=== PATIENT | female | born 1955 | race Two or more races ===

== ENCOUNTER 2018-10-16 16:27 | Inpatient (IN) | payer OTHER ==
[~2018-10-16] VITALS: Ht 172.7 cm; Wt 58.8 kg
[~2018-10-16 16:27] MED LIST: CARV3.1260 PO; FURO40TA4 PO; LISI-313 PO
[2018-10-16] MEDS ORDERED: BISACODYL (EC) 5 MG TAB PO PRN (20:00)
[2018-10-16] MEDS ORDERED: ONDANSETRON 4 MG INJ IV PRN (20:00)
[2018-10-16] MEDS ORDERED: hydrALAzine 20 MG INJ IV PRN (20:00)
[2018-10-16] MEDS ORDERED: DOCUSATE SODIUM 100 MG CAP PO PRN (20:00)
[2018-10-16] MEDS ORDERED: morphine 2 MG INJ IV PRN (20:00)
[2018-10-16] MEDS ORDERED: ACETAMINOPHEN 325 MG TAB PO PRN (20:00)
[2018-10-16] MEDS ORDERED: NACL 0.9% 3 ML SYG IV SCH (20:00)
[2018-10-16 20:34] VITALS: BP 146/90; PULSE 102; RESP 18
--- NOTE | 2018-10-16 22:11 | HP ---
Date/Time of Note Date/Time of Note DATE: 10/16/18 TIME: 22:11 Assessment/Plan VTE Prophylaxis Pharmacological prophylaxis: heparin Assessment/Plan Hospital Course this is a 63 of female being admitted to the telemetry floor for: #1 suspect new onset CHF: Patient did present with bilateral lower extremity and symptoms of orthopnea and shortness of breath. I suspect a cardiac etiology at the current time though renal etiology is also on consideration as well as hepa tic. Will obtain an echocardiogram. We will put the patient on IV Lasix for diuresis of 20 mg IV twice daily. Will monitor urine output. Fluid restriction and low-salt diet. Will check a BNP level. Consult cardiology 2. Bilateral lower extremity swelling: Again likely secondary to suspicion for new onset CHF. Nonetheless we will also check a bilateral lower extremity ultrasound Dopplers to rule out DVT. 3 urinary tract infection: Patient did receive ceftriaxone at the transferring facility. Will await urine culture/urinalysis results from the transfer facility. Initiate Cipro 250 p.o. twice daily x3 days 4 Thrombocytopenia: Etiology unknown, will check a liver ultrasound, 5 Mild hyperbilirubinemia: We will check a right upper quadrant ultrasound, 6 DVT GI prophylaxis: Heparin, no GI prophylaxis indicated Further treatment strategy will be implemented as per the clinical course Result Diagram: 10/16/18201110/16/182011 Results 24hrs Laboratory Tests Test 10/16/18 20:12 White Blood Count 6.6 Red Blood Count 4.35 Hemoglobin 13.9 Hematocrit 41.4 Mean Corpuscular Volume 95.2 Mean Corpuscular Hemoglobin 32.0 Mean Corpuscular Hemoglobin Concent 33.6 Red Cell Distribution Width 14.1 Platelet Count 130 L Mean Platelet Volume 11.1 H Immature Granulocytes % 0.300 Neutrophils % 65.0 Lymphocytes % 20.5 Monocytes % 11.3 H Eosinophils % 2.1 Basophils % 0.8 Nucleated Red Blood Cells % 0.3 H Immature Granulocytes # 0.020 Neutrophils # 4.3 Lymphocytes # 1.4 Monocytes # 0.7 Eosinophils # 0.1 Basophils # 0.1 Nucleated Red Blood Cells # 0.0 Sodium Level 140 Potassium Level 4.0 Chloride Level 106 Carbon Dioxide Level 22 Anion Gap 12 Blood Urea Nitrogen 16 Creatinine 0.79 Est Glomerular Filtrat Rate mL/min > 60 Glucose Level 140 Calcium Level 9.7 Magnesium Level 2.0 Total Bilirubin 1.2 Direct Bilirubin 0.00 Indirect Bilirubin 1.2 H Aspartate Amino Transf (AST/SGOT) 41 Alanine Aminotransferase (ALT/SGPT) 33 Alkaline Phosphatase 78 Creatine Kinase 66 Creatine Kinase Index 1.9 Creatinine Kinase MB (Mass) 1.27 Troponin I 0.029 B-Type Natriuretic Peptide 85219 H Total Protein 7.4 Albumin 3.8 Globulin 3.60 H Albumin/Globulin Ratio 1.05 Ethyl Alcohol Level < 10.0 H HPI/ROS Admit Date/Time Admit Date/Time Oct 16, 2018 at 18:07 Hx of Present Illness Chief complaint: Lower extremity swelling, shortness of breath x1 month This is a 63 of female who originally presented to [facility] with complaints of shortness of breath and swelling of her legs x1 month. Patient was transferred to [facility] secondary to insurance purposes. Patient reports that she has been noticing lower extremity swelling for the last 1 month or so. She also feels short of breath. She has a chronic nonproductive cough that she is unable to get rid of. She does report orthopnea. She denies any chest pain nausea vomiting or diarrhea. She does drink a few shots of alcohol on a weekly basis but not on a nightly basis. She does report dysuria she is currently homeless. Pertinent laboratory findings from the transfer facility please see chart for full details: CBC: White blood cell 6.1/hemoglobin 14/hematocrit 44/platelets 146 BMP 137/potassium 3.6/chloride 106/bicarb 24/creatinine 0.9 Urinalysis: Protein 3+ leukoesterase positive nitrite positive UDS negative Bili total 1.3 Troponin less than 0.06 Allergies: NKDA Medications: None ROS Const: As per HPI Eyes : No pain discharge or redness or change in visual acuity ENT: No pain, sore throat, congestion, congestion, dysphagia or discharge Respiratory: As per HPI Cardiovascular: No chest pain, palpitation, PND, or edema GI : no change in appetite, abdominal pain, nausea, vomiting, diarrhea, constipation, or change in the color his stool Genitourinary: As per HPI Musculoskeletal: As per HPI Skin: No rash, bruising or hives Neuro: No headache, dizziness, syncope, seizure, focal weakness Endocrine: No polyuria, polydipsia, temperature intolerance Psych: No hallucination, depression, anxiety or suicidal ideation PMH/Family/Social Past Medical History Medical History: no pertinent history Medications Current Medications IV Flush (NS 3 ml) 3 ml PER PROTOCOL IV ; Start 10/16/18 at 20:00; Status UNV Ondansetron HCl (Zofran Inj) 4 mg Q6H PRN IV NAUSEA/VOMITING; Start 10/16/18 at 20:00; Status UNV Acetaminophen (Tylenol Tab) 650 mg Q6H PRN PO .PAIN 1-3 OR TEMP; Start 10/16/18 at 20:00; Status UNV Morphine Sulfate (morphine) 2 mg Q4H PRN IV .PAIN 7-10; Start 10/16/18 at 20:00; Status UNV Docusate Sodium (Colace) 100 mg Q12H PRN PO .CONSTIPATION; Start 10/16/18 at 20:00; Status UNV Bisacodyl (Dulcolax) 5 mg DAILY PRN PO .CONSTIPATION; Start 10/16/18 at 20:00; Status UNV Heparin Sodium (Porcine) (Heparin (5000 Units/1ml)) 5,000 unit Q8 SC ; Start 10/16/18 at 22:00; Status UNV Furosemide (Lasix) 20 mg BID DIURETICS IV ; Start 10/16/18 at 21:00; Status UNV Lisinopril (Zestril) 5 mg ONCE ONCE PO ; Start 10/16/18 at 21:30; Stop 10/16/18 at 21:31; Status UNV Lisinopril (Zestril) 5 mg DAILY PO ; Start 10/17/18 at 09:00; Status UNV Coded Allergies: No Known Allergy (Unverified , 10/16/18) Past Surgical History Past Surgical Hx: no surgical history Family History Significant Family History: no pertinent family hx Social History Alcohol Use: none Smoking Status: Never smoker Drug Use: none Exam/Review of Systems Vital Signs Vitals Vital Signs Date Temp Pulse Resp B/P (MAP) Pulse Ox O2 O2 Flow FiO2 Time Delivery Rate 10/16/18 97.6 102 18 146/90 98 20:34 (108) Exam Exam General: Patient is a pleasant female currently lying in bed in no acute distress HEENT: Atraumatic, normocephalic. The pupils are equal, round and reactive. Extraocular motor are intact Neck: Supple with full range of motion. No rigidity or meningismus Chest: Nontender Lungs: Mild rales at the bases, nonlabored breathing Heart: Normal S1-S2, Regular rhythm and rate. No overt murmur on auscultation Abdomen: Soft , nontender, nondistended , bowel sounds are present. No guarding no rebound tenderness , No masses or organomegaly. No costovertebral temporal angle mass Extremities: Bilateral 2+ pitting edema of the lower extremities Neurologic: Normal mental status, speech normal, cranial nerves II through XII are intact, motor and sensory are intact, no focal weakness Additional Comments EKG: Sinus tachycardia at approximately 102 bpm, questionable old Q waves JERMAIN WASHINGTON Oct 16, 2018 22:11
[2018-10-16] MEDS ORDERED: LISINOPRIL 5 MG TAB PO ONE (22:30)
[2018-10-16] MEDS: FUROSEMIDE 40 MG INJ IV SCH (23:03)
[2018-10-16] MEDS: HEPARIN 5,000 UNIT/1 ML VIAL SC SCH (23:16)
[2018-10-16] MEDS ORDERED: ENALAPRILAT 1.25 MG INJ IV PRN (23:30)
[2018-10-16] MEDS ORDERED: LORAZEPAM 2 MG INJ IV PRN (23:30)
[2018-10-17] VITALS: BP 139/94; PULSE 105; RESP 19
[2018-10-17 01:56] VITALS: Ht 172.7 cm; Wt 58.8 kg
[2018-10-17 03:56] VITALS: BP 123/90; PULSE 99; RESP 19
[2018-10-17] MEDS: CIPROFLOXACIN 250 MG TAB NGT SCH ×2 (06:00→17:42)
[2018-10-17] MEDS: FUROSEMIDE 40 MG INJ IV SCH ×2 (06:12→17:43)
[2018-10-17] MEDS: HEPARIN 5,000 UNIT/1 ML VIAL SC SCH ×3 (06:21→21:08)
[2018-10-17 07:50] VITALS: BP 112/71; PULSE 94; RESP 20
[2018-10-17] MEDS: LISINOPRIL 5 MG TAB PO SCH (09:19)
[2018-10-17 11:45] VITALS: BP 118/85; PULSE 93; RESP 20
[2018-10-17] MEDS ORDERED: POTASSIUM CHLORIDE (SR) 20 MEQ TAB PO STA (12:11)
--- NOTE | 2018-10-17 12:12 | PN ---
Date/Time of Note Date/Time of Note DATE: 10/17/18 TIME: 12:05 Assessment/Plan VTE Prophylaxis Risk score (from Nsg)>0 risk: 2 SCD applied (from Nsg): Yes Pharmacological prophylaxis: NA/contraindicated Pharm contraindication: low risk/ambulating Lines/Catheters IV Catheter Type (from Nrsg): Saline Lock Assessment/Plan Assessment/Plan 63 yo homeless woman admitted with new onset CHF # suspect new onset CHF: - New LE edema and dyspnea on exertion. - Pending echo read - Continue IV diuresis. - Lisinopril for HTN - Dr. Aceves following. # Bilateral lower extremity swelling: - Duplex negative for DVT - Likely due to CHF # Bacteruria, asymptomatic - The patient denies dysuria or other urinary symptoms to me. But she was already started on antibiotics so will do a short course. #Thrombocytopenia - She reports "moderate" alcohol use to me. May be related to that - Follow up liver US #DVT GI prophylaxis: Heparin, no GI prophylaxis indicated Result Diagram: 10/17/18 0501 10/17/18 0501 Subjective 24 Hr Interval Summary Free Text/Dictation No acute overnight events. Patient ambulating around halls without assistance. Exam/Review of Systems Exam Vitals Vital Signs Date Temp Pulse Resp B/P (MAP) Pulse Ox O2 O2 Flow FiO2 Time Delivery Rate 10/17/18 98.0 93 20 118/85 96 Nasal 11:45 (96) Cannula Intake and Output 10/16/18 10/16/18 10/17/18 1515:00 23:00 07:00 IntakeIntake Total 120 ml 450 ml OutputOutput Total 650 ml BalanceBalance 120 ml -200 ml Exam General: Patient is a pleasant woman currently lying in bed in no acute distress HEENT: Atraumatic, normocephalic. The pupils are equal, round and reactive. Extraocular motor are intact Neck: Supple with full range of motion. No rigidity or meningismus Chest: Nontender Lungs: Mild rales at the bases, nonlabored breathing Heart: Normal S1-S2, Regular rhythm and rate. No overt murmur on auscultation Abdomen: Soft , nontender, nondistended , bowel sounds are present. No guarding no rebound tenderness , No masses or organomegaly. No costovertebral temporal angle mass Extremities: Bilateral 1+ pitting LE edema. Results Results 24hrs Laboratory Tests Test 7/24/19 20:12 10/16/18 22:45 10/17/18 02:28 10/17/18 05:01 White Blood Count 6.6 5.6 Red Blood Count 4.35 3.79 L Hemoglobin 13.9 13.1 Hematocrit 41.4 37.4 Mean Corpuscular 95.2 98.7 Volume Mean Corpuscular 32.0 34.6 H Hemoglobin Mean Corpuscular 33.6 35.0 Hemoglobin Concent Red Cell 14.1 15.9 H Distribution Width Platelet Count 130 L 118 L Mean Platelet Volume 11.1 H 11.5 H Immature 0.300 0.400 Granulocytes % Neutrophils % 65.0 62.3 Lymphocytes % 20.5 24.6 Monocytes % 11.3 H 10.0 Eosinophils % 2.1 1.6 Basophils % 0.8 1.1 Nucleated Red Blood 0.3 H 0.0 Cells % Immature 0.020 0.020 Granulocytes # Neutrophils # 4.3 3.5 Lymphocytes # 1.4 1.4 Monocytes # 0.7 0.6 Eosinophils # 0.1 0.1 Basophils # 0.1 0.1 Nucleated Red Blood 0.0 0.0 Cells # Sodium Level 140 143 Potassium Level 4.0 3.5 Chloride Level 106 106 Carbon Dioxide Level 22 25 Anion Gap 12 12 Blood Urea Nitrogen 16 15 Creatinine 0.79 0.74 Est Glomerular > 60 > 60 Filtrat Rate mL/min Glucose Level 140 122 Calcium Level 9.7 9.1 Magnesium Level 2.0 1.9 Total Bilirubin 1.2 1.4 H Direct Bilirubin 0.00 0.00 Indirect Bilirubin 1.2 H 1.4 H Aspartate Amino 41 35 Transf (AST/SGOT) Alanine 33 32 Aminotransferase (AL T/SGPT) Alkaline Phosphatase 78 69 Creatine Kinase 66 58 Creatine Kinase 1.9 2.2 Index Creatinine Kinase MB 1.27 1.28 (Mass) Troponin I 0.029 0.030 B-Type Natriuretic 73750 H Peptide Total Protein 7.4 6.6 Albumin 3.8 3.4 Globulin 3.60 H 3.20 Albumin/Globulin 1.05 1.06 Ratio Ethyl Alcohol Level < 10.0 H Urine Opiates Screen Negative Urine Barbiturates Negative Urine Amphetamines Negative Screen Urine Negative Benzodiazepines Screen Urine Cocaine Screen Negative Urine Cannabinoids Negative Hemoglobin A1c 6.1 H Triglycerides Level 72 Cholesterol Level 126 LDL Cholesterol, 80 Calculated HDL Cholesterol 32 L Cholesterol/HDL 3.9 Ratio Thyroid Stimulating 3.140 Hormone (TSH) Medications Medication Current Medications IV Flush (NS 3 ml) 3 ml PER PROTOCOL IV ; Start 10/16/18 at 20:00 Ondansetron HCl (Zofran Inj) 4 mg Q6H PRN IV NAUSEA/VOMITING; Start 10/16/18 at 20:00 Acetaminophen (Tylenol Tab) 650 mg Q6H PRN PO .PAIN 1-3 OR TEMP; Start 10/16/18 at 20:00 Morphine Sulfate (morphine) 2 mg Q4H PRN IV .PAIN 7-10; Start 10/16/18 at 20:00 Docusate Sodium (Colace) 100 mg Q12H PRN PO .CONSTIPATION; Start 10/16/18 at 20:00 Bisacodyl (Dulcolax) 5 mg DAILY PRN PO .CONSTIPATION; Start 10/16/18 at 20:00 Heparin Sodium (Porcine) (Heparin (5000 Units/1ml)) 5,000 unit Q8 SC Last administered on 10/17/18at 06:21; Admin Dose 5,000 UNIT; Start 10/16/18 at 22:00 Furosemide (Lasix) 20 mg BID DIURETICS IV Last administered on 10/17/18at 06:12; Admin Dose 20 MG; Start 10/16/18 at 23:00 Lisinopril (Zestril) 5 mg DAILY PO Last administered on 10/17/18at 09:19; Admin Dose 5 MG; Start 10/17/18 at 09:00 Enalaprilat (Vasotec Iv) 1.25 mg Q6H PRN IV ELEVATED BLOOD PRESSURE; Start 10/16/18 at 23:30 Lorazepam (Ativan) 1 mg Q4H PRN IV CONTROL WITHDRAWAL SYMPTOMS; Start 10/16/18 at 23:30 Ciprofloxacin (Cipro) 250 mg BID@06,18 NGT ; Start 10/17/18 at 06:00; Stop 10/20/18 at 05:59 GAMAL DELEON MD Oct 17, 2018 12:12
--- NOTE | 2018-10-17 14:53 | CONS ---
DATE OF ADMISSION: 10/16/2018 DATE OF CONSULTATION: 10/17/2018 REASON FOR CONSULTATION: Lower extremity edema, assess for congestive heart failure, hypertension. REQUESTING PHYSICIAN: Dr. Washington from the hospitalist service, Dr. Gamal Le. HISTORY OF PRESENT ILLNESS: Ms. Stahl is a 63-year-old female with no significant past medical history who initially presented to outside hospital with complaints of 1 month of generalized weakness, swel ling of her legs and dyspnea on exertion. The patient denies chest pain, palpitations, syncope. At outside hospital, the patient had a negative tox screen, creatinine of 0.9 with a sodium 137, potassi um 3.6, T bilirubin 1.5, positive UA, negative troponin. The patient additionally underwent a chest x-ray revealing left more than right bibasilar lung opacity and small effusion. Electrocardiogram re vealed sinus tachycardia, rate of 102, normal axis, normal intervals, left atrial abnormality, border line anterior R-wave progression with nonspecific enteritis and PVCs. The patient thereafter transfe rred to [facility] due to insurance reasons. Since arrival at [facility], the patient has relatively stable vital signs, systolic blood pressure 112-130/to heart rat es mainly 90s to low 100s, and afebrile. Continues to have shortness of breath. Denies chest pain. PAST MEDICAL HISTORY: As above in HPI. MEDICATIONS CURRENTLY IN HOSPITAL: 1. Lisinopril 5 mg daily. 2. Ciprofloxacin 200 mg b.i.d. 3. Vasotec. 4. Ativan. 5. Lasix 20 mg IV b.i.d. 6. Heparin 5000 subcu q.8h. 7. Zofran. 8. Tylenol. 9. Morphine. 10. Colace. 11. Dulcolax. ALLERGIES: NO KNOWN DRUG ALLERGIES. SOCIAL HISTORY: No current tobacco, rare social ETOH, no illicit drug use. FAMILY HISTORY: No history of sudden cardiac or early CAD. REVIEW OF SYSTEMS: As above in HPI. CONSTITUTIONAL: No fevers, chills. PULMONARY: Shortness of breath. CARDIOVASCULAR: No current chest pain. GASTROINTESTINAL: No vomiting. GENITOURINARY: No hematuria. MUSCULOSKELETAL: Degenerative joint disease. PSYCHIATRIC: Possible psych history. NEUROLOGIC: No documented history of CVA. ENDOCRINE: No documented history of diabetes mellitus. CARDIOVASCULAR: Shortness of breath, edema. PHYSICAL EXAMINATION: VITAL SIGNS: Temperature 98, blood pressure 118/85, pulse 90, respiratory rate 20, satting 96%. GENERAL: The patient is alert, awake, complaining of shortness of breath, denies weakness. NECK: JVP approximately 9-10 cm water. CHEST: Decreased breath sounds at bases bilaterally. HEART: Regular rate and rhythm. Normal S1, S2, I/ systolic murmur, nondisplaced PMI. ABDOMEN: Positive bowel sounds, soft. EXTREMITIES: 2+ edema. Difficult to palpate distal pulses bilateral posterior tibial. LABORATORY DATA: Most recently from today, white count 5.6, BUN 31, platelet count 118. Sodium 143. 5, creatinine 0.7, BUN 15. LDL 80, HDL 32. Tox screen negative. IMAGING STUDIES: As above in HPI with patient undergoing a liver ultrasound here revealing 1.5 x 1.1 cm hyperechoic lesion in the right hepatic lobe, gallbladder wall thickening as well as questionable pericholecystic fluid, right hydronephrosis. A venous ultrasound that revealed no sonographic evide nce of DVT and a chest x-ray that then revealed a small left and tiny right pleural effusion, bilater al lung base consolidations. ECG: As above in HPI. No further electrocardiograms for my review at this time. IMPRESSION: 1. Shortness of breath, lower extremity edema, assess for congestive heart failure. 2. Abnormal electrocardiogram, assess for acute coronary syndrome. 3. Premature ventricular contractions, assess for acute coronary syndrome, assess for cardiomyopathy lending to PVCs. 4. Urinary tract infection. 5. Generalized weakness, rule out cerebrovascular accident. 6. Increased BNP. 7. Dyslipidemia with low HDL. RECOMMENDATIONS: 1. At this time, we would maintain the patient on telemetry monitoring to follow rhythm and rate con trol closely. 2. We would continue the patient's DEE DEE inhibitor at this time and will give patient low dose beta bl ocker as well and continue patient's Lasix diuresis. 3. We will follow the patient's 2D echo that has been done for assessment of ejection fraction, wall motion, rule out any major valve abnormalities. Complete the patient's rule out for myocardial infa rction to ensure this patient's EKG abnormalities are chronic in nature and not due to any recent acu te coronary syndrome. 4. Continue the patient's heparin 5000 subcu q.8h. at this time. 5. Continue the patient's ciprofloxacin and follow up all culture data. 6. Would consider further evaluation of the patient's liver lesion, possible need for abdominal CT a nd follow up etiology of elevated T-bili, possibly congestion. Thank you for allowing me to take part in the care of this patient. I will continue to follow very c losely with you as further recommendations will be made as the patient progresses through her [facility] clinical course. Dictated By: GAMAL BERNARDO/ARLENE Conf#: [id number] DID#: [id number] CC: GAMAL LE MD; JERMAIN WASHINGTON MD;*EndCC*
[2018-10-17 15:32] VITALS: BP 122/87; PULSE 102; RESP 20
[2018-10-17 20:00] VITALS: BP 106/76; PULSE 97; RESP 19
--- NOTE | 2018-10-17 20:06 | RADRPT ---
Echocardiogram Report Patient Name: Alex MIDDLETON ID: [id number] : 1955 (63y 2m)Study Date: 10/17/2018 7:47:19 AM Gender: FAccession #: [id number] Tech: LE Location: [facility] Ref.Physician: JERMAIN WASHINGTON Height(Cm): BSA: Weight(Kg): Quality: GoodOrder Physician: JERMAIN WASHINGTON Account #: Procedures: Echocardiographic Report: Transthoracic echocardiogram with complete 2D, M-Mode, and doppler examination. Indications: Congestive Heart Failure. Measurements: 2D/M Mode Doppler Measurement Value Normal Range Measurement Value Normal Range LVIDd 2D 5.2 [ 3.8 - 5.2 ] cm AV Mean Bowen 0.6 [ 70.0 - 90.0 ] cm/sec LVIDs 2D 4.9 [ 2.2 - 3.5 ] cm AV Mean PG 1.0 [ 2.0 - 4.0 ] mmHg LVPWd 2D 1.2 [ 0.6 - 0.9 ] cm AV Peak Bowen 0.7 [ 100.0 - 170.0 ] cm/sec IVSd 2D 1.2 [ 0.6 - 0.9 ] cm AV Peak PG 2.0 [ 2.0 - 9.0 ] mmHg EDV 2D 128.0 [ 46.0 - 106.0 ] ml AV VTI 11.1 cm ESV 2D 115.0 [ 14.0 - 42.0 ] ml AI Peak PG 84.0 mmHg EF 2D 10.2 [ 54.0 - 74.0 ] percent AI Peak Bowen 4.6 cm/sec LVOT Diam 2.0 [ 2.1 - 2.5 ] cm AI PHT 257.0 msec LVOT Peak Bowen 0.4 [ 70.0 - 110.0 ] cm/sec LVOT Peak PG 1.0 [ 2.0 - 6.0 ] mmHg MV E Peak Bowen 0.8 [ 60.0 - 130.0 ] cm/sec MV A Peak Bowen 0.3 [ 100.0 - 120.0 ] cm/sec MV E/A 2.4 [ 0.8 - 1.5 ] ratio MV Decel Time 123 [ 104 - 258 ] msec Lat E` Bowen 0.0 [ 10.0 - 15.0 ] cm/sec Lateral E/E` 22.1 [ 1.0 - 2.0 ] ratio Med E` Bowen 0.0 cm/sec MV E/A 2.4 [ 0.8 - 1.5 ] ratio TR Peak Bowen 3.6 [ 100.0 - 280.0 ] cm/sec TR Peak PG 52.0 mmHg PV Peak Bowen 0.3 [ 40.0 - 80.0 ] cm/sec Findings: Left Ventricle: Normal left ventricular cavity size. Mild concentric left ventricular hypertrophy. Severe left ventricular systolic dysfunction. Ejection fraction is visually estimated at 20 %. Tissue Doppler/Mitral Doppler indices are consistent with restrictive physiology with markedly elevated left atrial pressure (Stage III-IV diastolic dysfunction). Right Ventricle: Normal right ventricular size. Moderate right ventricular systolic dysfunction. Left Atrium: There is mild enlargement of left atrium. Right Atrium: There is mild enlargement of right atrium. Mitral Valve: Normal appearance of the mitral valve. Mild mitral annular calcification. Moderate mitral valve regurgitation. Aortic Valve: Normal appearance of the aortic valve. No significant aortic stenosis with mild insufficiency. Mild to moderate aortic valve regurgitation. Tricuspid Valve: Normal appearance of the tricuspid valve. The estimated Peak RVSP is 67 mmHg. There is moderate tricuspid regurgitation. Pulmonic Valve: Normal pulmonic valve appearance. There is mild pulmonic regurgitation. Pericardium: Trivial pericardial effusion. No echocardiographic evidence to suggest pericardial tamponade. Pleural effusion seen. Aorta: Normal aortic root. IVC: Dilated IVC without respiratory collapse consistent with elevated right atrial pressure. Conclusions: Normal left ventricular cavity size. Mild concentric left ventricular hypertrophy. Severe left ventricular systolic dysfunction. Ejection fraction is visually estimated at 20 %. Tissue Doppler/Mitral Doppler indices are consistent with restrictive physiology with markedly elevated left atrial pressure (Stage III-IV diastolic dysfunction). Normal right ventricular size. Moderate right ventricular systolic dysfunction. There is mild enlargement of left atrium. There is mild enlargement of right atrium. Normal appearance of the mitral valve. Mild mitral annular calcification. Moderate mitral valve regurgitation. Normal appearance of the aortic valve. No significant aortic stenosis with mild insufficiency. Mild to moderate aortic valve regurgitation. Normal appearance of the tricuspid valve. Right ventricular systolic pressure is consistent with moderate pulmonary hypertension. The estimated Peak RVSP is 67 mmHg. There is moderate tricuspid regurgitation. Normal pulmonic valve appearance. There is mild pulmonic regurgitation. n. Trivial pericardial effusion. No echocardiographic evidence to suggest pericardial tamponade. Pleural effusion seen. Electronically Signed By: Thaddeus Charles-07-25 20:06:06 PDT
[2018-10-17] MEDS ORDERED: ZOLPIDEM 5 MG TAB PO ONE ×2 (22:30)
[2018-10-18] VITALS: BP 122/87; PULSE 83; RESP 20
[2018-10-18 04:00] VITALS: BP 121/72; PULSE 83; RESP 19
[2018-10-18] MEDS: FUROSEMIDE 40 MG INJ IV SCH (05:38)
[2018-10-18] MEDS: CIPROFLOXACIN 250 MG TAB NGT SCH (05:38)
[2018-10-18] MEDS: HEPARIN 5,000 UNIT/1 ML VIAL SC SCH ×2 (05:49→14:00)
[2018-10-18 08:18] VITALS: BP 135/86; PULSE 85; RESP 18
[2018-10-18] MEDS: LISINOPRIL 5 MG TAB PO SCH (09:01)
[2018-10-18] MEDS ORDERED: IOHEXOL 350MG/ML 50 ML BTL ONE (10:50)
[2018-10-18] MEDS ORDERED: SOD CHLORIDE 0.9% 100 ML ONE (10:50)
[2018-10-18] MEDS ORDERED: IOHEXOL 100 ML ONE (10:50)
[2018-10-18 11:12] VITALS: BP 102/67; PULSE 77; RESP 18
--- NOTE | 2018-10-18 11:29 | PDOCDIS ---
Discharge Instructions DIAGNOSIS Discharge Diagnosis Chronic systolic congestive heart failure with reduced ejection fraction. CONDITION [id number] Patient Condition: [id number] Fair HOME CARE INSTRUCTIONS: [id number] Diet Instructions: [id number] Reduced Sodium FOLLOW UP/APPOINTMENTS Follow-up Plan 1. Take your three medications as prescribed. 2. You should see a primary care doctor regularly to measure your blood pressure, check your labs, and refill medications. You can go through your insurance to get a primary care doctor, or you can go to a free or low-cost clinic at [facility]. 3. You have a small lesion on your liver seen on ultrasound. You should ask your primary care doctor for a CT with contrast to further evaluate this. 4. Don't eat more than 2g (2000 mg) sodium per day. Avoid food with saturated fat. 5. Exercise regularly. You should get at least 30 minutes daily of aerobic activity that makes you short of breath. You should exercise at least 3 times per week. 6. Return to the emergency room if you develop pressure-like chest pain or if you can't catch your breath at rest. GAMAL DELEON MD Oct 18, 2018 11:29
--- NOTE | 2018-10-18 12:26 | CONS ---
Assessment/Plan Assessment/Plan Hospital Course (Demo Recall) IMPRESSION: 1. Shortness of breath, lower extremity edema, assess for congestive heart failure.-improved sob and volume status overall 2. Abnormal electrocardiogram, assess for acute coronary syndrome. 3. Premature ventricular contractions, assess for acute coronary syndrome, assess for cardiomyopathy lending to PVCs. 4. Urinary tract infection. 5. Generalized weakness, rule out cerebrovascular accident. 6. Increased BNP. 7. Dyslipidemia with low HDL. 8. Cardiomyopathy-EF 20% by echo this admit Recc: -Tele -Continue Coreg/zestril -Continue but change lasix to po -outpatient f/u Consultation Date/Type/Reason Admit Date/Time Oct 16, 2018 at 18:07 Initial Consult Date sob Type of Consult Cardiology Reason for Consultation CHF Requesting Provider: GAMAL DELEON MD Date/Time of Note DATE: 10/18/18 TIME: 12:20 Exam/Review of Systems Vital Signs Vitals Vital Signs Date Temp Pulse Resp B/P (MAP) Pulse Ox O2 O2 Flow FiO2 Time Delivery Rate 10/18/18 98.0 77 18 102/67 97 Room Air 11:12 (79) Intake and Output 10/17/18 10/17/18 10/18/18 1515:00 23:00 07:00 IntakeIntake Total 1800 ml 550 ml OutputOutput Total 5 ml BalanceBalance 1795 ml 550 ml Exam Exam Review of Systems: CONSTITUTIONAL: No fevers, chills. PULMONARY: No sob CARDIOVASCULAR: No chest pain/palpitations GASTROINTESTINAL: No nausea/vomiting. GENITOURINARY: No hematuria/dysuria. MUSCULOSKELETAL: No myagias/arthalgias. PSYCHIATRIC: The patient denies depression. NEUROLOGIC: No weakness Constitutional: alert Psych: no complaints Head: normocephalic ENMT: mucosa pink and moist Neck: supple, jvd (9 cm water) Respiratory: clear to auscultation Cardiovascular: regular rate and rhythm Gastrointestinal: soft, non-tender Musculoskeletal: muscle tone (normal) Extremities: pitting pedal edema (trace bilateral LE) Labs Result Diagram: 10/18/18 0453 10/18/18 0453 Results 24hrs Laboratory Tests Test 10/17/18 12:52 10/17/18 18:11 10/18/18 00:33 10/18/18 04:53 Thyroid Stimulating 3.160 Hormone (TSH) Creatine Kinase 60 54 Creatine Kinase 2.2 2.4 Index Creatinine Kinase MB 1.30 1.30 (Mass) Troponin I 0.016 0.022 White Blood Count 6.6 Red Blood Count 4.13 L Hemoglobin 13.6 Hematocrit 39.9 Mean Corpuscular 96.6 Volume Mean Corpuscular 32.9 Hemoglobin Mean Corpuscular 34.1 Hemoglobin Concent Red Cell 14.4 Distribution Width Platelet Count 128 L Mean Platelet Volume 12.8 H Immature 0.300 Granulocytes % Neutrophils % 63.2 Lymphocytes % 25.2 Monocytes % 7.5 Eosinophils % 3.2 Basophils % 0.6 Nucleated Red Blood 0.0 Cells % Immature 0.020 Granulocytes # Neutrophils # 4.2 Lymphocytes # 1.7 Monocytes # 0.5 Eosinophils # 0.2 Basophils # 0.0 Nucleated Red Blood 0.0 Cells # Sodium Level 140 Potassium Level 4.2 Chloride Level 107 Carbon Dioxide Level 21 Anion Gap 12 Blood Urea Nitrogen 19 Creatinine 0.76 Est Glomerular > 60 Filtrat Rate mL/min Glucose Level 128 Calcium Level 9.2 Phosphorus Level 4.7 Magnesium Level 1.9 Total Bilirubin 1.1 Direct Bilirubin 0.00 Indirect Bilirubin 1.1 Aspartate Amino 41 Transf (AST/SGOT) Alanine 30 Aminotransferase (AL T/SGPT) Alkaline Phosphatase 74 Total Protein 6.5 Albumin 3.4 Globulin 3.10 Albumin/Globulin 1.09 Ratio Test 10/18/18 04:56 Creatine Kinase 51 Creatine Kinase 2.9 Index Creatinine Kinase MB 1.48 (Mass) Troponin I 0.032 Medications Medications Current Medications IV Flush (NS 3 ml) 3 ml PER PROTOCOL IV ; Start 10/16/18 at 20:00 Ondansetron HCl (Zofran Inj) 4 mg Q6H PRN IV NAUSEA/VOMITING; Start 10/16/18 at 20:00 Acetaminophen (Tylenol Tab) 650 mg Q6H PRN PO .PAIN 1-3 OR TEMP; Start 10/16/18 at 20:00 Morphine Sulfate (morphine) 2 mg Q4H PRN IV .PAIN 7-10; Start 10/16/18 at 20:00 Docusate Sodium (Colace) 100 mg Q12H PRN PO .CONSTIPATION; Start 10/16/18 at 20:00 Bisacodyl (Dulcolax) 5 mg DAILY PRN PO .CONSTIPATION; Start 10/16/18 at 20:00 Heparin Sodium (Porcine) (Heparin (5000 Units/1ml)) 5,000 unit Q8 SC Last administered on 10/18/18at 05:49; Admin Dose 5,000 UNIT; Start 10/16/18 at 22:00 Furosemide (Lasix) 20 mg BID DIURETICS IV Last administered on 10/18/18at 05:38; Admin Dose 20 MG; Start 10/16/18 at 23:00 Lisinopril (Zestril) 5 mg DAILY PO Last administered on 10/18/18at 09:01; Admin Dose 5 MG; Start 10/17/18 at 09:00 Enalaprilat (Vasotec Iv) 1.25 mg Q6H PRN IV ELEVATED BLOOD PRESSURE; Start 10/16/18 at 23:30 Lorazepam (Ativan) 1 mg Q4H PRN IV CONTROL WITHDRAWAL SYMPTOMS; Start 10/16/18 at 23:30 Ciprofloxacin (Cipro) 250 mg BID@06,18 NGT Last administered on 10/18/18at 05:38; Admin Dose 250 MG; Start 10/17/18 at 06:00; Stop 10/20/18 at 05:59 Carvedilol (Coreg) 3.125 mg BID PO Last administered on 10/18/18 09:01; Admin Dose 3.125 MG; Start 10/17/18 at 13:00 GAMAL PURVIS Oct 18, 2018 12:26
[2018-10-18 15:11] VITALS: BP 122/69; PULSE 88; RESP 16
--- NOTE | 2018-10-18 16:01 | DS ---
Date/Time of Note Date/Time of Note DATE: 10/18/18 TIME: 15:55 Discharge Summary Admission/Discharge Info Admit Date/Time Oct 16, 2018 at 18:07 Discharge Date/Time Oct 18, 2018 Discharge Diagnosis Chronic systolic congestive heart failure with reduced ejection fraction. Patient Condition: Fair Consults Dr. Aceves, cardiology Procedures None Hx of Present Illness Chief complaint: Lower extremity swelling, shortness of breath x1 month This is a 63 yo homeless woman who originally presented to [facility] with complaints of shortness of breath and swelling of her legs x1 month. Patient was transferred to [facility] secondary to insurance purposes. Patient reports that she has been noticing lower extremity swelling for the last 1 month or so. She also feels short of breath. She has a chronic nonproductive cough that she is unable to get rid of. She does report orthopnea. She denies any chest pain nausea vomiting or diarrhea. She does drink a few shots of alcohol on a weekly basis but not on a nightly basis. She denies dysuria. Pertinent laboratory findings from the transfer facility please see chart for full details: CBC: White blood cell 6.1/hemoglobin 14/hematocrit 44/platelets 146 BMP 137/potassium 3.6/chloride 106/bicarb 24/creatinine 0.9 Urinalysis: Protein 3+ leukoesterase positive nitrite positive UDS negative Bili total 1.3 Troponin less than 0.06 Allergies: NKDA Medications: None Hospital Course She was given a short course of ciprofloxacin for possible UTI, although she did not have dysuria. Urine cultures grew E Coli, although sensitivity had not returned by the time of discharge. Echo showed severe systolic heart failure with ejection fracture 20%, stage III- IV diastolic dysfunction. She was diuresed with IV lasix with resolution of dry cough and improvement of leg edema. She will be discharged on beta kim, ACEi, and oral lasix. industrial relations worker chen pascualed a recuperative care for her. Follow-up Plan 1. Take your three medications as prescribed. 2. You should see a primary care doctor regularly to measure your blood pressure, check your labs, and refill medications. You can go through your insurance to get a primary care doctor, or you can go to a free or low-cost clinic at [facility]. 3. You have a small lesion on your liver seen on ultrasound. You should ask your primary care doctor for a CT with contrast to further evaluate this. 4. Don't eat more than 2g (2000 mg) sodium per day. Avoid food with saturated fat. 5. Exercise regularly. You should get at least 30 minutes daily of aerobic activity that makes you short of breath. You should exercise at least 3 times per week. 6. Return to the emergency room if you develop pressure-like chest pain or if you can't catch your breath at rest. Primary Care Provider Not On Staff Doctor Time spent on discharge: > 30 minutes Pending Labs Laboratory Tests Test 10/17/18 18:11 10/18/18 00:33 10/18/18 04:53 10/18/18 04:56 Creatine 60 54 51 Kinase IU/L (23-200) IU/L (23-200) IU/L (23-200) Creatine Kinase 2.2 2.4 2.9 Index Creatinine 1.30 1.30 1.48 Kinase MB ng/ml (0.0-2.4) ng/ml (0.0-2.4 ng/ml (0.0-2.4 (Mass) ) ) Troponin I 0.016 0.022 0.032 ng/ml (0.000-0. ng/ml (0.000-0 ng/ml (0.000-0 120) .120) .120) White Blood 6.6 Count 10^3/ul (4.8-1 0.8) Red Blood 4.13 Count 10^6/ul (4.20- 5.40) Hemoglobin 13.6 g/dl (12.0-16. 0) Hematocrit 39.9 % (37.0-47.0) Mean 96.6 Corpuscular fl (82.0-101.0 Volume ) Mean 32.9 Corpuscular pg (29.0-33.0) Hemoglobin Mean 34.1 Corpuscular g/dl (32.0-37. Hemoglobin Conc 0) ent Red Cell 14.4 Distribution % (11.5-14.5) Width Platelet Count 128 10^3/UL (140-4 15) Mean Platelet 12.8 Volume fl (7.4-10.4) Immature 0.300 Granulocytes % % (0.001-0.429 ) Neutrophils % 63.2 % (39.0-77.0) Lymphocytes % 25.2 % (15.0-51.0) Monocytes % 7.5 % (0.0-11.0) Eosinophils % 3.2 % (0.0-7.0) Basophils % 0.6 % (0.0-2.0) Nucleated Red 0.0 Blood Cells % /100WBC (0.0-0 .0) Immature 0.020 Granulocytes # 10^3/ul (0.0-0 .031) Neutrophils # 4.2 10^3/ul (1.6-7 .5) Lymphocytes # 1.7 10^3/ul (0.8-2 .9) Monocytes # 0.5 10^3/ul (0.3-0 .9) Eosinophils # 0.2 10^3/ul (0.0-0 .5) Basophils # 0.0 10^3/ul (0.0-0 .1) Nucleated Red 0.0 Blood Cells # 10^3/ul (0.0-0 .0) Sodium Level 140 mmol/L (135-14 4) Potassium 4.2 Level mmol/L (3.5-5. 1) Chloride Level 107 mmol/L (97-110 ) Carbon Dioxide 21 Level mmol/L (21-31) Anion Gap 12 (5-13) Blood Urea 19 Nitrogen mg/dl (7-20) Creatinine 0.76 mg/dl (0.44-1. 00) Est Glomerular > 60 Filtrat mL/min (>60) Rate mL/min Glucose Level 128 mg/dl (70-220) Calcium Level 9.2 mg/dl (8.4-10. 2) Phosphorus 4.7 Level mg/dl (2.5-4.9 ) Magnesium 1.9 Level mg/dl (1.7-2.5 ) Total 1.1 Bilirubin mg/dl (0.2-1.3 ) Direct 0.00 Bilirubin mg/dl (0.00-0. 20) Indirect 1.1 Bilirubin mg/dl (0-1.1) Aspartate Amino 41 Transf (AST/SGO IU/L (15-46) T) Alanine 30 Aminotransferas IU/L (13-69) e (ALT/SGPT) Alkaline 74 Phosphatase IU/L (42-121) Total Protein 6.5 g/dl (6.1-8.1) Albumin 3.4 g/dl (3.3-4.9) Globulin 3.10 g/dl (1.3-3.2) Albumin/Globuli 1.09 n Ratio GAMAL DELEON MD Oct 18, 2018 16:01
[2018-10-18] MEDS ORDERED: ZOLPIDEM 5 MG TAB PO ONE (21:00)
== END 2018-10-18 16:36 | disposition home or self-care (01) | DRG 292 ==
LOC: PP2 18:07 → 6WM 20:51
PROVIDERS: ADMIT Internal Medicine; ATTEND Internal Medicine
DX: I11.0 Hypertensive heart disease with heart failure (principal); N39.0 Urinary tract infection, site not specified; I50.22 Chronic systolic (congestive) heart failure; D69.6 Thrombocytopenia, unspecified; E80.6 Other disorders of bilirubin metabolism; Z59.0 Homelessness; E78.5 Hyperlipidemia, unspecified; M19.90 Unspecified osteoarthritis, unspecified site; I49.3 Ventricular premature depolarization
CPT/HCPCS: 71045; 76705; 80053; 80061; 80307; 82550; 82553; 83036; 83735; 83880; 84100; 84443; 84484; 85025; 87081; 93306; 93970; J1644; J1940; Q9967

== ENCOUNTER 2019-01-13 22:20 | Inpatient (IN) | payer OTHER ==
[~2019-01-13] VITALS: Ht 170.2 cm; Wt 54.0 kg
[~2019-01-13 22:20] MED LIST changes: +FURO-110 PO; +OMEG100024 PO
[2019-01-14] MEDS ORDERED: CEFTRIAXONE 1 GM/50 ML (PMX) 50 ML IVPB STA (03:18)
[2019-01-14] MEDS ORDERED: AZITHROMYCIN 250 MG TAB PO STA (03:18)
[2019-01-14] MEDS ORDERED: FUROSEMIDE 40 MG INJ IV ONE (03:30)
[2019-01-14] MEDS ORDERED: ONDANSETRON 4 MG INJ IV PRN ×2 (04:00→04:30)
[2019-01-14] MEDS ORDERED: ACETAMINOPHEN 325 MG TAB PO PRN ×2 (04:00→04:30)
[2019-01-14] MEDS ORDERED: NACL 0.9% 3 ML SYG IV SCH (04:30)
[2019-01-14] MEDS ORDERED: NITROGLYCERIN (SL) 0.4 MG TAB SL PRN (04:30)
[2019-01-14] MEDS ORDERED: ALBUTEROL/IPRATROPIUM (NEB) 3 ML AMP HHN PRN (04:30)
[2019-01-14] MEDS ORDERED: VANCOMYCIN 1 GM in 250 ML IVPB SCH (06:00)
[2019-01-14] MEDS ORDERED: VANCOMYCIN IV PER PHARMACY XX SCH (09:00)
[2019-01-14] MEDS ORDERED: BENAZEPRIL 10 MG TAB PO SCH (09:00)
[2019-01-14] MEDS: CEFEPIME 1GM/50 ML (PMX) 50 ML IVPB SCH ×2 (09:17→20:33)
[2019-01-14] MEDS: FUROSEMIDE 40 MG INJ IV SCH (09:18)
[2019-01-14] MEDS: HEPARIN 5,000 UNIT/1 ML VIAL SC SCH ×2 (09:19→20:40)
[2019-01-14 14:42] VITALS: Ht 170.2 cm; Wt 54.0 kg
[2019-01-14 14:49] VITALS: BP 118/78; PULSE 86; RESP 20
[2019-01-14] MEDS: GUAIFENESIN/DM 5ML CUP PO PRN (16:46)
[2019-01-14] MEDS: VANCOMYCIN 500 MG (PMX) 100 ML IVPB SCH (18:33)
[2019-01-14 20:00] VITALS: BP 127/85; PULSE 92; RESP 18
[2019-01-14 23:56] VITALS: BP 113/77; PULSE 89; RESP 18
[2019-01-15 04:07] VITALS: BP 110/83; PULSE 89; RESP 18
[2019-01-15] MEDS: VANCOMYCIN 500 MG (PMX) 100 ML IVPB SCH (05:59)
[2019-01-15 07:09] VITALS: BP 115/74; PULSE 84; RESP 18
[2019-01-15] MEDS: CEFEPIME 1GM/50 ML (PMX) 50 ML IVPB SCH ×2 (08:26→22:21)
[2019-01-15] MEDS: FUROSEMIDE 40 MG INJ IV SCH (08:26)
[2019-01-15] MEDS: HEPARIN 5,000 UNIT/1 ML VIAL SC SCH ×2 (08:28→22:31)
[2019-01-15 10:58] VITALS: BP 117/76; PULSE 81; RESP 19
[2019-01-15] MEDS: LOSARTAN 25 MG TAB PO SCH (14:16)
[2019-01-15 15:38] VITALS: BP 114/72; PULSE 73; RESP 18
[2019-01-15] MEDS: VANCOMYCIN 750 MG (PMX) 250 ML IVPB SCH (19:31)
[2019-01-15 20:00] VITALS: BP 121/84; PULSE 93; RESP 18
[2019-01-15] MEDS ORDERED: ZOLPIDEM 5 MG TAB PO ONE (22:30)
[2019-01-16] VITALS: BP 119/80; PULSE 86; RESP 18
[2019-01-16 04:51] VITALS: BP 125/79; PULSE 58; RESP 17
[2019-01-16] MEDS: VANCOMYCIN 750 MG (PMX) 250 ML IVPB SCH (07:00)
[2019-01-16 07:41] VITALS: BP 127/91; PULSE 92; RESP 18
[2019-01-16] MEDS: CEFEPIME 1GM/50 ML (PMX) 50 ML IVPB SCH (08:29)
[2019-01-16] MEDS: LOSARTAN 25 MG TAB PO SCH (08:31)
[2019-01-16] MEDS: FUROSEMIDE 40 MG INJ IV SCH (08:31)
[2019-01-16] MEDS: HEPARIN 5,000 UNIT/1 ML VIAL SC SCH ×2 (08:34→22:05)
[2019-01-16 11:37] VITALS: BP 119/78; PULSE 89; RESP 18
[2019-01-16 16:12] VITALS: BP 126/86; PULSE 96; RESP 19
[2019-01-16 19:32] VITALS: BP 132/85; PULSE 92; RESP 18
[2019-01-16] MEDS ORDERED: ZOLPIDEM 5 MG TAB PO ONE (23:00)
[2019-01-17] VITALS: BP 130/79; PULSE 88; RESP 18
[2019-01-17 04:59] VITALS: BP 130/79; PULSE 88; RESP 17
[2019-01-17] MEDS: LEVOFLOXACIN 500 MG TAB PO SCH (06:42)
[2019-01-17 08:01] VITALS: BP 116/76; PULSE 92; RESP 18
[2019-01-17] MEDS: FUROSEMIDE 40 MG TAB PO SCH (09:30)
[2019-01-17] MEDS: LOSARTAN 25 MG TAB PO SCH (09:31)
[2019-01-17] MEDS: HEPARIN 5,000 UNIT/1 ML VIAL SC SCH ×2 (09:51→20:30)
[2019-01-17 11:42] VITALS: BP 115/72; PULSE 87; RESP 18
[2019-01-17 16:23] VITALS: BP 124/91; PULSE 87; RESP 18
[2019-01-17 19:23] VITALS: BP 120/83; PULSE 89; RESP 18
[2019-01-17] MEDS ORDERED: ZOLPIDEM 5 MG TAB PO ONE (21:00)
[2019-01-18] VITALS (7 sets, daily range): BP systolic 100–126; BP diastolic 58–83; PULSE 77–97; RESP 18–20
[2019-01-18] MEDS: LEVOFLOXACIN 500 MG TAB PO SCH (05:53)
[2019-01-18] MEDS: FUROSEMIDE 40 MG TAB PO SCH (08:36)
[2019-01-18] MEDS: LOSARTAN 25 MG TAB PO SCH (08:36)
[2019-01-18] MEDS: HEPARIN 5,000 UNIT/1 ML VIAL SC SCH ×2 (08:43→20:54)
[2019-01-18] MEDS ORDERED: ZOLPIDEM 5 MG TAB PO PRN (21:30)
[2019-01-19 04:19] VITALS: BP 134/87; PULSE 82; RESP 20
[2019-01-19] MEDS: LEVOFLOXACIN 500 MG TAB PO SCH (06:14)
[2019-01-19 07:30] VITALS: BP 124/65; PULSE 80
[2019-01-19] MEDS: FUROSEMIDE 40 MG TAB PO SCH (09:53)
[2019-01-19] MEDS: HEPARIN 5,000 UNIT/1 ML VIAL SC SCH ×3 (09:53→20:32)
[2019-01-19] MEDS: LOSARTAN 25 MG TAB PO SCH (09:53)
[2019-01-19 12:01] VITALS: BP 118/83; PULSE 91; RESP 19
[2019-01-19] MEDS: GUAIFENESIN/DM 5ML CUP PO PRN (12:05)
[2019-01-19 15:22] VITALS: BP 106/68; PULSE 76; RESP 20
[2019-01-19 16:20] VITALS: BP 112/65; PULSE 87; RESP 19
[2019-01-19 20:00] VITALS: BP 120/76; PULSE 82; RESP 19
[2019-01-19] MEDS ORDERED: ZOLPIDEM 5 MG TAB PO PRN (21:54)
[2019-01-20] MEDS: LEVOFLOXACIN 500 MG TAB PO SCH (05:33)
[2019-01-20] MEDS: FUROSEMIDE 40 MG TAB PO SCH (08:39)
[2019-01-20] MEDS: LOSARTAN 25 MG TAB PO SCH (08:40)
[2019-01-20] MEDS: HEPARIN 5,000 UNIT/1 ML VIAL SC SCH (08:40)
[2019-01-20 08:58] VITALS: BP 125/92; PULSE 90; RESP 19
[2019-01-20] MEDS ORDERED: GUAIFENESIN LA 600 MG TABSR PO SCH (10:00)
[2019-01-20] MEDS ORDERED: CEPASTAT LOZENGE MT PRN (10:00)
[2019-01-20 11:32] VITALS: BP 111/62; PULSE 76; RESP 18
== END 2019-01-20 12:00 | disposition left against medical advice (07) | DRG 291 ==
LOC: E/R 22:20 → 6WM 01-14 03:59
PROVIDERS: ADMIT Internal Medicine; ATTEND Internal Medicine
DX: I50.23 Acute on chronic systolic (congestive) heart failure (principal); J18.9 Pneumonia, unspecified organism; N39.0 Urinary tract infection, site not specified; J98.11 Atelectasis; I42.0 Dilated cardiomyopathy
CPT/HCPCS: 36415; 71045; 80048; 80053; 80202; 81001; 82550; 82553; 83690; 83735; 83880; 84484; 85025; 87081; 93005; 96374; 96375; J0692; J0696; J1644; J1940; J3370